=== PATIENT | male | born 1965 | race Two or more races ===

== ENCOUNTER 2017-08-12 00:51 | Emergency (ER) | payer OTHER, MEDICAID ==
[~2017-08-12] VITALS: Ht 165.1 cm; Wt 68.0 kg
--- NOTE | 2017-08-12 01:06 | NUR ---
PT BIB [facility] IN [facility]. PT REFUSED ALL MEDICAL CARE. PT IS REFUSING VITAL SIGNS AT THIS TIME. DR. MACIAS IS AWARE.
--- NOTE | 2017-08-12 01:07 | NUR ---
PT IS NOW AGREEING TO VITAL SIGNS.
--- NOTE | 2017-08-12 01:14 | NUR ---
PT LEFT FOR XRAY VIA WC WITH [facility]
--- NOTE | 2017-08-12 01:55 | NUR ---
PT RETURNED FROM CT.
[2017-08-12] MEDS ORDERED: IBUPROFEN 400 MG TABLET PO ONE (02:00)
[2017-08-12] MEDS ORDERED: IBUPROFEN 400 MG TABLET ONE (02:03)
--- NOTE | 2017-08-12 02:05 | NUR ---
PT REFUSED THE MOTRIN BECAUSE IT IS "ASPIRIN BASED". PT WAS ASSURED THAT THE MEDICATION IS NOT ASPIRIN BASED. DR. GILBERTO FRANKLIN.
[2017-08-12 02:29] VITALS: BP 138/97
--- NOTE | 2017-08-12 02:29 | NUR ---
Patient discharged to [facility] in stable condition. Written and verbal after care instructions given. Patient verbalizes understanding of instruction. PT LEFT VIA WC. PT'S VSS. PT IS MEDICALLY CLEARED TO BOOK.
== END 2017-08-12 02:30 ==
LOC: ER 00:57
DX: M19.90 Unspecified osteoarthritis, unspecified site (principal)
CPT/HCPCS: 73110 ×2; 73502; 73562; 99284; A4606; Z7610